=== PATIENT | female | born 1970 | race African-American/Black ===

== ENCOUNTER 2016-12-11 19:02 | Emergency (ER) | payer SELFPAY ==
[~2016-12-11] VITALS: Ht 157.5 cm; Wt 65.0 kg
[~2016-12-11 19:02] MED LIST: CYCL-36 PO; DILA8TAB4 PO; HYDR-2768 PO; RANI150C PO
[2016-12-11 19:03] VITALS: BP 164/82; PULSE 79; RESP 16; TEMP 98; O2SAT 99
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
[2016-12-11] MEDS ORDERED: DILA8TAB4 PO (20:23)
[2016-12-11] MEDS ORDERED: HYDR25TA5 PO (20:23)
[2016-12-11] MEDS ORDERED: IBUPROFEN 600 MG TAB PO ONE (20:30)
[2016-12-11] MEDS ORDERED: DICL75TA PO (20:49)
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
== END 2016-12-11 21:06 | disposition home or self-care (01) ==
LOC: NEPK 19:02
DX: S63.92XA Sprain of unspecified part of left wrist and hand, initial encounter (principal); D64.9 Anemia, unspecified; Z79.899 Other long term (current) drug therapy; Z88.5 Allergy status to narcotic agent; Z88.0 Allergy status to penicillin; Z72.0 Tobacco use; Z86.73 Personal history of transient ischemic attack (TIA), and cerebral infarction without residual deficits; W22.8XXA Striking against or struck by other objects, initial encounter
CPT/HCPCS: 73130; 99283

== ENCOUNTER 2017-08-08 17:49 | Emergency (ER) | payer SELFPAY ==
[~2017-08-08] VITALS: Ht 157.5 cm; Wt 68.0 kg
[~2017-08-08 17:49] MED LIST changes: -CYCL-36 PO; +DICL75TA PO; -HYDR-2768 PO; +HYDR25TA5 PO; -RANI150C PO
[2017-08-08 18:03] VITALS: BP 133/68; PULSE 76; RESP 18; TEMP 98.7; O2SAT 100
== END 2017-08-08 19:20 | disposition left against medical advice (07) ==
LOC: NED 17:49
DX: R52 Pain, unspecified (principal); Z53.21 Procedure and treatment not carried out due to patient leaving prior to being seen by health care provider
CPT/HCPCS: 99281